=== PATIENT | male | born 1970 | race Caucasian/White ===

== ENCOUNTER 2019-08-09 10:21 | Inpatient (IN) ==
[2019-08-09 10:42] VITALS: BMI 29.9
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
[2019-08-09] MEDS ORDERED: NS 1000 ML 1,000 ML IV ONE ×2 (11:21→13:36)
[2019-08-09] MEDS ORDERED: NS 1000 ML 1,000 ML ONE ×2 (11:23→13:32)
[2019-08-09 11:39] LABS: BILIRUBIN,URINE 2+ (NEGATIVE); BLOOD/HEMOGLOBIN,URINE 5+ (NEGATIVE); GLUCOSE, URINE 1+ (NEGATIVE); KETONES,URINE 3+ (NEGATIVE); LEUKOCYTE ESTERASE ,URINE 2+ (NEGATIVE); NITRITES,URINE POSITIVE (NEGATIVE); PROTEIN,URINE 3+ (NEGATIVE); UROBILINOGEN,URINE 2+ (NORMAL)
[2019-08-09 11:46] LABS: BASOPHILS % (AUTO) 0.2 % (0.2-1.0); HEMATOCRIT 46.1 % (42.0-54.0); HEMOGLOBIN 16.3 g/dL (13.5-18.0); LYMPHOCYTES # (AUTO) 0.5 X10^3/uL (1.3-2.9); LYMPHOCYTES % (AUTO) 5.1 % (21.0-51.0); MEAN CORPUSCULAR HEMOGLOBIN 33.6 pg (27.0-34.0); MEAN CORPUSCULAR HGB CONC 35.5 g/dL (33.0-35.0); MEAN CORPUSCULAR VOLUME 94.8 fL (80.0-100.0); MEAN PLATELET VOLUME 9.6 fL (7.4-11.0); MONOCYTES % (AUTO) 10.2 % (0.0-13.0); NEUTROPHILS % (AUTO) 84.5 % (42.0-75.0); PLATELET COUNT 76 X10^3/uL (150.0-450.0); RED BLOOD COUNT 4.86 X10^6/uL (4.7-6.0); RED CELL DISTRIBUTION WIDTH 14.3 % (11.6-16.5); WHITE BLOOD COUNT 9.5 X10^3/uL (3.6-10.0)
[2019-08-09 11:47] LABS: APPEARANCE,URINE SLIGHTLY HAZY (CLEAR); BACTERIA,URINE TRACE /HPF (NEGATIVE); COLOR,URINE AMBER (YELLOW); MUCUS,URINE MANY /HPF (NEGATIVE); SQUAMOUS EPITHELIAL CELL,UR FEW /HPF (NEGATIVE)
[2019-08-09 11:54] LABS: SALICYLATE < 2.8 mg/dL (2.8-20)
[2019-08-09 11:55] LABS: BLOOD UREA NITROGEN 24 mg/dL (7-18); CALCIUM 7.8 mg/dL (8.5-10.1); CARBON DIOXIDE 26.7 mmol/L (21-32); CHLORIDE 88 mmol/L (98-107); COR NA(FOR HYPERGLY) 129 mmol/L (136-145); CREATININE 1.44 mg/dL (0.70-1.30); SODIUM 127 mmol/L (136-145); TROPONIN I < 0.02 ng/mL (0-1.5); eGFR NON BLACK RACES 55 (>60)
[2019-08-09 11:59] LABS: ALANINE AMINOTRANSFERASE 50 Units/L (12-78); ALKALINE PHOSPHATASE 102 Units/L (46-116); AMYLASE 33 Units/L (25-115); ASPARTATE AMINO TRANSFERASE 88 Units/L (15-37); BLOOD ALCOHOL < 3 mg/dL (0-19.9); CKMB % 1.1 % (<4); COR CA(FOR HYPOALB) 8.6 mg/dL (8.5-10.1); CREATINE KINASE 236 Units/L (39-308); CREATINE KINASE MB 2.6 ng/mL (0-4.0); LIPASE 236 Units/L (73-393); TOTAL PROTEIN 7.3 g/dL (6.4-8.2)
--- NOTE | 2019-08-09 12:05 | CT ---
HISTORYAltered mental statusSTUDYBRAIN W/O CONTechnique: Axial noncontrast images with coronal and sagittal reformats. Dose reduction procedures were used with mA/kv adjusted for body size.COMPARISONNoneFINDINGSThe ventricles are normal in size shape and position. There are no areas of abnormal attenuation to suggest recent or remote CVA, hemorrhage, mass lesion, or extra-axial fluid collection. The visualized sinuses are clear. The calvarium is intact.IMPRESSIONNo significant intracranial abnormality identifiedElectronically signed by: DELICIA ORDONEZ (Aug 09, 2019 12:04:11)
--- NOTE | 2019-08-09 12:12 | CT ---
HISTORY:Back pain, hematuriaStudy: CT abdomen and pelvis without contrastComparison:NoneTechnique: Multiple axial images of the abdomen and pelvis were obtained without IV contrast. Oral contrast was not administered. Dose reduction techniques including Automated Exposure Control (AEC) and adjustment of mA and kV were utilized.FINDINGS:Please note evaluation is limited without IV contrast.The lung bases are clear. There is diffuse hepatic steatosis. The spleen, gallbladder, adrenal glands, and kidneys are unremarkable. No renal calculi. There is severe inflammatory stranding seen around the head, body and tail of the pancreas compatible with acute pancreatitis with reactive inflammation of the duodenum as well. Please note evaluation for complication such as necrosis or venous thrombosis is not possible on noncontrast imaging.No free intraperitoneal air. No evidence of intestinal obstruction or inflammation. Appendix is normal. There is free fluid within the retroperitoneum tracking inferiorly in the left pericolic gutter.The soft tissues and osseous structures are intact. Limited evaluation of vascular structures due to lack of IV contrast. No pathologically enlarged lymph nodes are identified. Normal urinary bladder. There is a left inguinal hernia containing unobstructed segment of the distal colon.IMPRESSION ABDOMEN/PELVIS:1. Severe inflammatory stranding around the head, body and tail of the pancreas compatible with acute pancreatitis with reactive inflammation of the duodenum. There is free fluid around the pancreas in the retroperitoneum tracking inferiorly along the left pericolic gutter. Please note evaluation for complication such as necrosis or venous thrombosis is not possible on noncontrast imaging.2. Diffuse hepatic steatosis.3. Left inguinal hernia containing unobstructed segment of distal colon.Electronically signed by: ANU CARLIN (Aug 09, 2019 12:10:58)
[2019-08-09] MEDS ORDERED: CATAPRES TAB 0.2 MG PO ONE (13:36)
[2019-08-09] MEDS ORDERED: CATAPRES TAB 0.2 MG ONE (13:42)
[2019-08-09] MEDS ORDERED: ROCEPHIN VIAL 1 GRAM 1 G in NS 100 ML IV + SPIKE MINIBAG* 100 ML IV ONE (13:45)
[2019-08-09 13:47] LABS: HEMOGLOBIN A1C 5.6 %
[2019-08-09 13:51] LABS: SERUM ACETONE NEGATIVE (NEGATIVE)
[2019-08-09] MEDS ORDERED: MORPHINE SULFATE INJ 2 MG INJ IVP PRN (14:52)
[2019-08-09] MEDS ORDERED: ZOFRAN INJ 4 MG VIAL IVP PRN (14:52)
[2019-08-09] MEDS: LIBRIUM PO PRN (16:27)
[2019-08-09] MEDS: ROCEPHIN VIAL 1 GRAM 1 G in NS 100 ML IV + SPIKE MINIBAG* 100 ML IV SCH (16:27)
[2019-08-09] MEDS: NS 1000 ML 1,000 ML IV SCH ×2 (16:28→23:28)
[2019-08-09] MEDS: PEPCID 20 MG IV PREMIX* 20 MG/50 ML BAG IV PRN (16:28)
[2019-08-09] MEDS ORDERED: CATAPRES TAB 0.2 MG PO SCH (21:00)
[2019-08-09] MEDS ORDERED: POTASSIUM CHL 40 MEQ/NS 0.45% 500 ML IV PRN (21:23)
[2019-08-09] MEDS ORDERED: KLOR-CON PO PRN (21:23)
[2019-08-09] MEDS ORDERED: MICRO K EXTEN CAP 10 MEQ PO PRN (21:23)
[2019-08-09] MEDS ORDERED: POTASSIUM CHLORIDE LIQ 20 MEQ UDC PO PRN (21:23)
[2019-08-09] MEDS ORDERED: K-DUR TAB 20 MEQ PO PRN (21:23)
[2019-08-09] MEDS ORDERED: K-RIDER 10 MEQ/NS 100 ML 10 MEQ/100 ML BAG IV PRN (21:23)
[2019-08-09] MEDS ORDERED: POTASSIUM CHL 60 MEQ/NS 0.45% 500 ML IV PRN (21:23)
[2019-08-09] MEDS ORDERED: MAGNESIUM SULFATE 1 GRAM/100 mL PREMIX 4 G/400 ML BAG IV ONE (21:31)
[2019-08-09] MEDS: MAGNESIUM SULFATE 1 GRAM/100 mL PREMIX 1 GM/100 ML BAG IV PRN ×3 (21:51→23:29)
[2019-08-10] MEDS: PEPCID 20 MG IV PREMIX* 20 MG/50 ML BAG IV PRN
[2019-08-10] MEDS: NS 1000 ML 1,000 ML IV SCH ×3 (06:03→16:33)
[2019-08-10 06:31] LABS: BASOPHILS % (AUTO) 0.2 % (0.2-1.0); EOSINOPHILS % (AUTO) 0.2 % (0.9-2.9); HEMATOCRIT 36.9 % (42.0-54.0); HEMOGLOBIN 12.8 g/dL (13.5-18.0); LYMPHOCYTES # (AUTO) 0.5 X10^3/uL (1.3-2.9); LYMPHOCYTES % (AUTO) 13.3 % (21.0-51.0); MEAN CORPUSCULAR HEMOGLOBIN 32.7 pg (27.0-34.0); MEAN CORPUSCULAR HGB CONC 34.6 g/dL (33.0-35.0); MEAN CORPUSCULAR VOLUME 94.5 fL (80.0-100.0); MEAN PLATELET VOLUME 8.7 fL (7.4-11.0); MONOCYTES # (AUTO) 0.7 x10^3/uL (0.3-0.8); MONOCYTES % (AUTO) 18.6 % (0.0-13.0); NEUTROPHILS # (AUTO) 2.4 x10^3/uL (2.2-4.8); NEUTROPHILS % (AUTO) 67.7 % (42.0-75.0); PLATELET COUNT 46 X10^3/uL (150.0-450.0); RED CELL DISTRIBUTION WIDTH 14.4 % (11.6-16.5); WHITE BLOOD COUNT 3.6 X10^3/uL (3.6-10.0)
[2019-08-10 06:39] LABS: ALANINE AMINOTRANSFERASE 40 Units/L (12-78); ALBUMIN 2.3 g/dL (3.4-5.0); ALKALINE PHOSPHATASE 75 Units/L (46-116); AMYLASE 25 Units/L (25-115); ASPARTATE AMINO TRANSFERASE 63 Units/L (15-37); BLOOD UREA NITROGEN 17 mg/dL (7-18); CALCIUM 7.3 mg/dL (8.5-10.1); CARBON DIOXIDE 28.5 mmol/L (21-32); CHLORIDE 98 mmol/L (98-107); CHOL/HDL RATIO 6.3 (0.0-5.0); CHOLESTEROL 88 mg/dL (0-200); COR CA(FOR HYPOALB) 8.7 mg/dL (8.5-10.1); COR NA(FOR HYPERGLY) 133 mmol/L (136-145); CREATININE 1.04 mg/dL (0.70-1.30); HDL CHOLESTEROL 14 mg/dL (40-60); LIPASE 135 Units/L (73-393); MAGNESIUM 2.3 mg/dL (1.7-2.9); SODIUM 132 mmol/L (136-145); TOTAL PROTEIN 5.9 g/dL (6.4-8.2); TRIGLYCERIDES 121 mg/dL (0-150); eGFR NON BLACK RACES > 60 (>60)
[2019-08-10 06:50] LABS: PLATELET MORPHOLOGY COMMENT NORMAL (NORMAL)
--- NOTE | 2019-08-10 07:12 | US ---
HISTORYAbdominal pain, pancreatitisSTUDYGallbladder ultrasoundCOMPARISONNoneFINDINGSThe liver is mildly enlarged and increased in echogenicity suggestive of diffuse fatty infiltration. No cysts, masses, or biliary ductal dilatation is identified. No gallstones are present within the gallbladder. Gallbladder wall thickness was normal. The common duct measured 4.2 mm. The right kidney measured 12.6 x 6 x 7 cm and demonstrated no solid masses, hydronephrosis, stones, or perinephric fluid collections. The pancreas was not well visualized.IMPRESSIONNo evidence for cholelithiasis or cholecystitisMild hepatomegaly with diffuse fatty infiltrationElectronically signed by: DELICIA ORDONEZ (Aug 10, 2019 07:10:51)
[2019-08-10] MEDS ORDERED: ZESTRIL TAB 20 MG ONE ×2 (08:42→21:41)
[2019-08-10] MEDS: ROCEPHIN VIAL 1 GRAM 1 G in NS 100 ML IV + SPIKE MINIBAG* 100 ML IV SCH (08:50)
[2019-08-10] MEDS ORDERED: ZESTRIL TAB 20 MG PO SCH (09:00)
--- NOTE | 2019-08-10 10:38 | DR.H&P ---
H&P - History & Physical for Day of: H&P Date: 08/09/19 - Chief Complaint Chief Complaint: ABDOMINAL PAIN AND HALLUCINATIONS - History of Present Illness History of Present Illness: IS A 49 YEAR OLD PATIENT OF OURS WHO PRESENTED TO THE ER WITH REPORTS OF HALLUCINATIONS, AND ABDOMINAL PAIN. PATIENTS BROTHER REPORTS THAT PATIENT WAS RECENTLY DIAGNOSED WITH HTN. PATIENT ADMITS TO DRINKING ALCOHOL DAILY. SYMPTOMS STARTED TWO DAYS PRIOR. ON ARRIVAL TO THE ER, VITALS WERE 98.0-123-22-94%-140/87. LABS WERE OBTAINED. ABNORMAL LAB VALUES INCLUDE THE FOLLOWING: PLT COUNT 76, SODIUM 127, CHLORIDE 88, BUN 24, CREATININE 188, CALCIUM 7.8, MAGNESIUM 1.2, TOTAL BILI 3.10, AST 88, ALBUMIN 3.0. AMYLASE AND LIPASE ARE NORMAL. CARDIAC ENZYMES WITHIN NORMAL LIMITS. URINALYSIS WAS OBTAINED AND REVEALED: WBC 0-2, RBC 5-10, LEUKOCYTES 2+, BACTERIA TRACE. URINE CULTURE WAS SET UP. A BRAIN CT WAS OBTAINED AND REVEALED: No significant intracranial abnormality identified. EKG OBTAINED AND REVEALED: SINUS TACHYCARDIA WITH HR 116. AN ABDOMEN/PELVIS CT WITHOUT CONTRAST WAS OBTAINED AND REVEALED: 1. Severe inflammatory stranding around the head, body and tail of the pancreas compatible with acute pancreatitis with reactive inflammation of the duodenum. There is free fluid around the pancreas in the retroperitoneum tracking inferiorly along the left pericolic gutter. Please note evaluation for complication such as necrosis or venous thrombosis is not possible on noncontrast imaging. 2. Diffuse hepatic steatosis. 3. Left inguinal hernia containing unobstructed segment of distal colon. HE WAS GIVEN CATAPRES 0- 2MG PO X 1 DOSE AND A NORMAL SALINE BOLUS X 2. HE WAS ADMITTED FOR FURTHER EVALUATION AND TREATMENT OF ACUTE PANCREATITIS, AMS, UTI, DEHYDRATION, AND HYPONATREMIA. HE WAS STARTED ON NS AT 125ML/HR, ROCEPHIN 1G IV DAILY, PEPCID 20MG IV BID, MORPHINE 2MG IV Q4H PRN, ZOFRAN 4MG IV Q6H PRN, LIBRIUM 25MG PO TID PRN, ZESTRIL 20MG PO BID, METOPROLOL 50MG PO BID, AND THE POTASSIUM AND MAGNESIUM PROTOCOLS, IV PROCAL, AND ALBUMIN 25% IV DAILY. OTHERWISE, WE PLAN TO FOLLOW UP WITH AM LABS AND CONTINUE TO MONITOR. - Past Medical History Past Medical History: Hypertension - Past Surgical History Surgical History: No History - Family History Family Medical History: Cancer, Hypertension - Social History Does patient currently use any type of tobacco product: No Have you used tobacco products in the last 12 months: No Type of Tobacco Use: None Does any household member use tobacco: No Alcohol Use: Heavy, DAILY Drug Use: None - Medications Home Medications: No Known Drug Allergies Allergy (Verified 08/09/19 10:42) CONTINUE taking the following medications alprazolam 0.25 mg PO DAILY PRN 08/09/19 [History] lisinopril 20 mg PO DAILY 08/09/19 [History] metoprolol succinate 100 mg PO DAILY 08/09/19 [History] - Review of Systems Constitutional: Weakness Eyes: No Symptoms Reported ENT: No Symptoms Reported Respiratory: No Symptoms Reported Cardiovascular: No Symptoms Reported Gastrointestinal: Nausea, Abdominal Pain Genitourinary: No Symptoms Reported Musculoskeletal: No Symptoms Reported Skin: No Symptoms Reported Neurological: See HPI, Weakness, Confusion - Physical Exam Vital Signs: Temperature 98.4 F Pulse Rate [Brachial] 96 Pulse Rate 108 Respiratory Rate 20 Blood Pressure [Right Arm] 147/98 Blood Pressure [Left Arm] 137/76 Blood Pressure 157/101 O2 Sat by Pulse Oximetry 97 Oriented: Not Oriented Eyes: Normal Ear: Normal Nose: Normal Throat: Normal Respiratory: Diminished Throughout Cardiovascular: Normal : Normal Auscultation: Bowel Sounds: Normal Palpation: Normal Tenderness: Diffuse Skin: Normal Musculoskeletal: Normal Psychiatric: Normal Mood Description: Anxious Affect: Anxious Speech Pattern: Inappropriate - Assessment/Plan (1) Acute pancreatitis Qualifiers: Pancreatitis type: unspecified pancreatitis type Acute pancreatitis complication: unspecified Qualified Code(s): K85.90 - Acute pancreatitis without necrosis or infection, unspecified Status: Acute Plan: ADMIT, NS AT 125ML/HR, ROCEPHIN 1G IV DAILY, PEPCID 20MG IV BID, MORPHINE 2MG IV Q4H PRN, ZOFRAN 4MG IV Q6H PRN, LIBRIUM 25MG PO TID PRN, ZESTRIL 20MG PO BID, METOPROLOL 50MG PO BID, AND THE POTASSIUM AND MAGNESIUM PROTOCOLS, IV PROCAL, AND ALBUMIN 25% IV DAILY, OBTAIN AMMONIA LEVEL (2) Acute dehydration Status: Acute (3) AMS (altered mental status) Qualifiers: Altered mental status type: transient alteration of awareness Qualified Code(s): R40.4 - Transient alteration of awareness Status: Acute (4) Acute hyponatremia Status: Acute (5) Hypertension Qualifiers: Hypertension type: essential hypertension Qualified Code(s): I10 - Essential (primary) hypertension Status: Acute - Allergies Allergies/Adverse Reactions: Allergies Allergy/AdvReac Type Severity Reaction Status Date / Time No Known Drug Allergies Allergy Verified 08/09/19 10:42
[2019-08-10] MEDS ORDERED: PROCALAMINE 3 % 1,000 ML IV SCH (11:00)
[2019-08-10] MEDS: TOPROL XL PO SCH ×2 (11:06→21:55)
[2019-08-10] MEDS: LIBRIUM PO PRN ×2 (16:33)
[2019-08-10] MEDS: ZESTRIL TAB 20 MG PO SCH (21:56)
[2019-08-11] MEDS: LIBRIUM PO PRN ×2 (00:10→07:30)
[2019-08-11] MEDS: NS 1000 ML 1,000 ML IV SCH (01:16)
[2019-08-11] MEDS ORDERED: VISTARIL PO PRN (01:58)
[2019-08-11] MEDS ORDERED: VISTARIL PO ONE (01:59)
[2019-08-11] MEDS ORDERED: HALDOL INJ IM ONE (04:35)
[2019-08-11] MEDS ORDERED: HALDOL INJ ONE (04:36)
[2019-08-11 05:41] VITALS: BP 160/110
[2019-08-11 06:51] LABS: ALANINE AMINOTRANSFERASE 65 Units/L (12-78); ALBUMIN 2.7 g/dL (3.4-5.0); ALKALINE PHOSPHATASE 100 Units/L (46-116); ASPARTATE AMINO TRANSFERASE 125 Units/L (15-37); BLOOD UREA NITROGEN 14 mg/dL (7-18); CALCIUM 8.2 mg/dL (8.5-10.1); CARBON DIOXIDE 28.8 mmol/L (21-32); CHLORIDE 100 mmol/L (98-107); COR CA(FOR HYPOALB) 9.2 mg/dL (8.5-10.1); COR NA(FOR HYPERGLY) 138 mmol/L (136-145); CREATININE 0.96 mg/dL (0.70-1.30); SODIUM 137 mmol/L (136-145); TOTAL PROTEIN 6.8 g/dL (6.4-8.2); eGFR NON BLACK RACES > 60 (>60)
[2019-08-11 07:08] LABS: BASOPHILS % (AUTO) 0.1 % (0.2-1.0); EOSINOPHILS % (AUTO) 0.5 % (0.9-2.9); HEMATOCRIT 39.1 % (42.0-54.0); HEMOGLOBIN 13.6 g/dL (13.5-18.0); LYMPHOCYTES # (AUTO) 0.7 X10^3/uL (1.3-2.9); LYMPHOCYTES % (AUTO) 15.9 % (21.0-51.0); MEAN CORPUSCULAR HEMOGLOBIN 33.3 pg (27.0-34.0); MEAN CORPUSCULAR HGB CONC 34.9 g/dL (33.0-35.0); MEAN CORPUSCULAR VOLUME 95.4 fL (80.0-100.0); MEAN PLATELET VOLUME 9.1 fL (7.4-11.0); MONOCYTES # (AUTO) 1.2 x10^3/uL (0.3-0.8); MONOCYTES % (AUTO) 27.2 % (0.0-13.0); NEUTROPHILS # (AUTO) 2.5 x10^3/uL (2.2-4.8); NEUTROPHILS % (AUTO) 56.3 % (42.0-75.0); PLATELET COUNT 61 X10^3/uL (150.0-450.0); RED CELL DISTRIBUTION WIDTH 14.7 % (11.6-16.5); WHITE BLOOD COUNT 4.4 X10^3/uL (3.6-10.0)
[2019-08-11 07:25] LABS: PLATELET MORPHOLOGY COMMENT NORMAL (NORMAL)
[2019-08-11] MEDS ORDERED: ZESTRIL TAB 20 MG ONE (07:28)
[2019-08-11] MEDS: ZESTRIL TAB 20 MG PO SCH (07:30)
[2019-08-11] MEDS: TOPROL XL PO SCH (07:30)
== END 2019-08-11 10:45 | disposition home or self-care (01) | DRG 439 ==
LOC: ER 10:26 → MED/SURG 13:57
PROVIDERS: ADMIT Internal Medicine; ATTEND Internal Medicine
DX: E87.1 Hypo-osmolality and hyponatremia; R44.1 Visual hallucinations; E86.0 Dehydration; I10 Essential (primary) hypertension; K85.90 Acute pancreatitis without necrosis or infection, unspecified; R40.4 Transient alteration of awareness; N39.0 Urinary tract infection, site not specified
CPT/HCPCS: 36415; 70450; 74176; 76705; 80053; 80061; 80307; 80320; 81001; 82009; 82140; 82150; 82550; 82553; 83036; 83690; 83735; 84484; 85025; 87086; 93005; 96365; 96367; 96374; 99284; A4216; A4222; J0696; J3475; J7030; J7050; Q0177; S0028